=== PATIENT | female | born 1990 | race Caucasian/White ===

== ENCOUNTER 2025-03-06 19:16 | Emergency (ER) | payer OTHER ==
[~2025-03-06] VITALS: Ht 152.4 cm; Wt 56.0 kg
[2025-03-06 19:30] VITALS: TEMP 97.9
[2025-03-06 20:41] VITALS: BP 111/49; PULSE 103; RESP 18; O2SAT 100
== END 2025-03-06 23:37 | disposition left against medical advice (07) ==
LOC: EMS 19:30
DX: H57.11 Ocular pain, right eye (principal); Z53.21 Procedure and treatment not carried out due to patient leaving prior to being seen by health care provider